=== PATIENT | male | born 1950 | race Caucasian/White ===

== ENCOUNTER → 2023-07-06 06:15 | Day surgery (SDC) | payer MEDICARE, SELFPAY | LOC: GI 06:15 | PROVIDERS: ATTENDING PHYSICIAN Internal Medicine Gastroenterology; FAMILY PHYSICIAN Family Medicine | DX: Z12.11 Encounter for screening for malignant neoplasm of colon (principal); D12.0 Benign neoplasm of cecum; K63.5 Polyp of colon; D12.2 Benign neoplasm of ascending colon; D12.3 Benign neoplasm of transverse colon; K64.0 First degree hemorrhoids; Z86.010 Personal history of colon polyps | CPT/HCPCS: 45385; 45380; 88305 ==

== ENCOUNTER → 2023-09-18 10:19 | Outpatient (REF) | payer MEDICARE, SELFPAY | LOC: HWRAD 10:19 | PROVIDERS: ATTENDING PHYSICIAN Internal Medicine; FAMILY PHYSICIAN Family Medicine | DX: R05.3 Chronic cough (principal) | CPT/HCPCS: 71046 ==

== ENCOUNTER → 2024-02-28 07:20 | Outpatient (REF) | payer MEDICARE, SELFPAY | LOC: EMG 07:20 | PROVIDERS: ATTENDING PHYSICIAN Physician Assistant; FAMILY PHYSICIAN Family Medicine | DX: M54.16 Radiculopathy, lumbar region (principal); M54.12 Radiculopathy, cervical region; R20.2 Paresthesia of skin; R29.898 Other symptoms and signs involving the musculoskeletal system; R20.0 Anesthesia of skin | CPT/HCPCS: 95886; 95913 ==